=== PATIENT | male | born 1960 | race Caucasian/White ===

== ENCOUNTER 2018-01-29 08:19 | Outpatient (CLI) | payer OTHER ==
--- NOTE | 2018-01-29 11:12 | MRI ---
MRI LUMBAR SPINE WIHTOUT CONTRAST: Multiplanar, multisequential imaging of the lumbar spine obtained. INDICATION: Lumbar radiculopathy. FINDINGS: The lumbar vertebral maintain normal height and alignment. The disk spaces are maintained. Vertebra l body signal appears normal. At L1-2, no significant disk bulge. No central canal or foraminal stenosis. At L2-3, no disk bulge or protrusion. Mild facet arthrosis. No central canal or foraminal stenosis. At L3-4, minimal disk bulge slightly more pronounced to the left. There is left foraminal encroachme nt and there is contact with traversing left L4 nerve root and possible contact with the exiting left L3 nerve root within the foramina. There is facet arthrosis with fluid in the facet joint and there is mild central canal stenosis. At L4-5, there is a more prominent broad-based disk bulge and there is a slight anterolisthesis prese nt. There is rather pronounced facet and ligamentous hypertrophy and prominent facet arthrosis n the left with fluid in the left facet joint. These changes all combine to result in a severe central ca nal stenosis at this level. Bilateral foraminal encroachment is present. At L5-S1, mild diffuse disk bulge more prominent to the left. This flattens the anterior thecal sac and may slightly displace the traversing left S1 nerve root. Mild facet arthrosis and very mild cent ral canal stenosis. IMPRESSION: Severe central canal stenosis at L4-5 as described above. The findings at each level are noted above . POS: C
== END 2018-01-29 08:20 | disposition home or self-care (01) ==
LOC: MRI 08:19
PROVIDERS: ATTEND Family Medicine
DX: M54.16 Radiculopathy, lumbar region (principal); M48.061 Spinal stenosis, lumbar region without neurogenic claudication
CPT/HCPCS: 72148

== ENCOUNTER 2025-07-03 17:31 | Emergency (ER) | payer BC, MEDICARE ==
[~2025-07-03 17:31] MED LIST: Iopamidol-370 76% 500 ML MDV (1 ML CHARGE) ONE
[2025-07-03 18:25] LABS: #Basophils Less than 0.03 10x3/uL (0.0-0.2); #Eosinophils 0.03 10x3/uL (0.0-0.7); #Monocytes 1.09 10x3/uL (0.11-0.59); #Neutrophils 4.34 10x3/uL (1.40-6.50); %Basophils 0.3 % (0.0-1.0); %Eosinophils 0.4 % (0.0-10.0); %Lymphocytes 17.2 % (21.0-51.0); %Monocytes 16.3 % (0.0-10.0); %Neutrophils 65.2 % (42.0-75.0); Hematocrit 41.4 % (42.0-52.0); Hemoglobin 14.1 g/dL (14.0-18.0); Mean Corpuscular Hemoglobin 31.9 pg (27.0-31.0); Mean Corpuscular Volume 93.7 fL (78.0-98.0); Platelet Count 220 10x3/uL (130-400); Red Blood Cell (RBC) Count 4.42 mill/uL (4.70-6.10); White Blood Cell (WBC) Count 6.67 10x3/uL (4.8-10.8)
[2025-07-03 18:52] LABS: MONO NEGATIVE CONTROL ZONE White (Negative) (White); MONO POSITIVE CONTROL Pink Line (Positive) (PINK/RED); Mononucleosis NEGATIVE (NEGATIVE)
[2025-07-03] MEDS ORDERED: diphenhydrAMINE 50 MG/ML VIAL ONE (18:52)
[2025-07-03] MEDS ORDERED: Famotidine/PF 20 mg/2ml Vial ONE (18:52)
[2025-07-03 18:56] LABS: ALT (SGPT) 25 U/L (Less than 45); AST (SGOT) 18 U/L (11-34); Albumin 4.0 g/dL (3.1-4.5); Alkaline Phosphatase 61 U/L (40-110); Anion Gap 13 mmol/L (10-20); BUN (Urea Nitrogen) 26 mg/dL (8.4-25.7); Bilirubin, Total 0.7 mg/dL (0.3-1.2); Calc. Creatinine Clearance 0 mL/min (70-130); Calcium 9.0 mg/dL (7.8-10.44); Carbon Dioxide 24 mmol/L (23-31); Chloride 100 mmol/L (98-107); Globulin 3.0 g/dL (2.4-3.5); Glucose 197 mg/dL (80-115); Potassium 4.5 mmol/L (3.5-5.1); Sodium 132 mmol/L (136-145)
== END 2025-07-03 21:14 | disposition home or self-care (01) ==
LOC: ERS 17:31
DX: L03.211 Cellulitis of face (principal); H66.92 Otitis media, unspecified, left ear; K08.89 Other specified disorders of teeth and supporting structures; R21 Rash and other nonspecific skin eruption; J02.9 Acute pharyngitis, unspecified; I10 Essential (primary) hypertension; E11.9 Type 2 diabetes mellitus without complications; Z79.82 Long term (current) use of aspirin; Z79.84 Long term (current) use of oral hypoglycemic drugs; Z79.899 Other long term (current) drug therapy
CPT/HCPCS: 70487; 80053; 85025; 86308; 87081; 87430; 96374; 96375; J1200; J1308; Q9967